=== PATIENT | male | born 1955 | race Caucasian/White ===

== ENCOUNTER → 2016-10-08 | Outpatient (CLI) | payer BC ==
[~2016-10-08] MED LIST: CIPR-151 PO; ESOM40CA24 PO; NIFE60TA13 PO; SUCR1TAB29 PO
--- NOTE | 2016-10-08 15:39 | DI ---
Indication: ITS.REASON: I25.10, I74.9 leg pain after walking PROCEDURE: US ARTERIAL EXTREMITY LOWER BI: Technique: Grayscale color and duplex Doppler imaging was performed of the arterial tree of both legs. Findings: RIGHT LEG (cm/sec) Common Femoral 111 Superficial Femoral Proximal 76 Mid 76 Distal 84 Popliteal 73 JAVID-prox 35 [employer]-prox 43 JAVID-dist 32 [employer]-dist 64 LEFT LEG (cm/sec) Common Femoral 66 Superficial Femoral Proximal 73 Mid 83 Distal 81 Popliteal 57 JAVID-prox 24 [employer]-prox 48 JAVID-dist 32 [employer]-dist 85 Normal multiphasic waveforms throughout both lower extremities. No velocity elevation or occlusion. IMPRESSION: Normal exam. .
== END ==
LOC: IMA 14:26
PROVIDERS: ATTEND Physician Assistant
DX: I25.10 Atherosclerotic heart disease of native coronary artery without angina pectoris (principal); I74.9 Embolism and thrombosis of unspecified artery